=== PATIENT | female | born 2005 | race Caucasian/White ===

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

== ENCOUNTER 2024-03-14 11:45 | Outpatient (CLI) | payer BC, SELFPAY ==
--- NOTE | ~2024-03-14 | US_ITS ---
EXAMINATION TYPE: US breast RT complete COMPARISON: NONE REASON FOR STUDY: Mastodynia TECHNIQUE: Targeted sonographic evaluation of the right breast was performed. INTERPRETATION: No solid or cystic lesion identified in the region scanned. No sonographic abnormality seen in the re gion scanned. IMPRESSION: Negative BI-RADS CATEGORY: BI-RADS 1: Normal Reviewed, dictated and finalized at location .
== END 2024-03-14 11:46 | disposition home or self-care (01) ==
LOC: MICIMG 11:47
PROVIDERS: PCP Nurse Practitioner; Visit Provider Nurse Practitioner
DX: N64.4 Mastodynia (principal)
CPT/HCPCS: 76641